=== PATIENT | male | born 1985 | race Hispanic/Latino ===

== ENCOUNTER 2017-04-05 01:11 | Emergency (ER) | payer OTHER ==
[~2017-04-05] VITALS: Ht 170.2 cm; Wt 65.8 kg
[~2017-04-05 01:11] MED LIST: CLINDAMYCIN HY300 MG PO; MOBIC15 MG PO; PERMETHRIN 60 M60 ML TOP; XODOL PO
--- NOTE | 2017-04-05 02:47 | RADIOLOGY REPORT ---
EXAMINATION: WRIST 4 VIEWS, RIGHT CLINICAL INFORMATION: Right wrist pain following injury. COMPARISON: None. TECHNIQUE: AP, lateral, oblique, scaphoid views of the right wrist are provided. FINDINGS: There is a comminuted fracture to the base of the right fifth metacarpal. Alignment is adequate. There is no displacement of the pronator fat pad. The proximal carpal row is intact. IMPRESSION: Fracture to the base of the right fifth metacarpal.
--- NOTE | 2017-04-05 03:02 | ED HAND/WRIST INJURY COMPLAINT ---
History of Present Illness General Chief Complaint: Hand or Wrist Injury Stated Complaint: "?RT WRIST INJURY S/P FALL AT WORK" Source: patient, old records Exam Limitations: no limitations Vital Signs & Intake/Output Vital Signs & Intake/Output Vital Signs Date Time Temp Pulse Resp B/P B/P Pulse O2 O2 Flow FiO2 Mean Ox Delivery Rate 04/05 0136 99.0 90 16 119/77 98 Room Air Room Air Allergies Coded Allergies: MDX - PCN (penicillin) (PCN (PENICILLIN)) (HIVES 09/16/15) Reconcile Medications CLINDAMYCIN HCL (Clindamycin Hydrochloride) 300 MG CAP 1 CAP PO TID INFECTION (Reported) HYDROCODONE/ACETAMINOPHEN (Xodol 5-300 Tablet) 1 TAB TAB 1 TAB PO PRN PAIN ( Reported) Ibuprofen 600 MG TABLET 1 TAB PO Q6PRN PRN pain with food Meloxicam (Mobic) 15 MG TAB 1 TAB PO DAILY PRN PAIN Oxycodone HCl/Acetaminophen (Percocet 5-325 MG Tablet) 5 MG-325 MG TABLET 1 TAB PO Q6P PRN severe pain Triage Note: 32yo MALE TO TRIAGE W/CO R WRIST PAIN SP FALL AT WORK ON SAT. STATES "HE PUT HIS R HAND OUT TO BRACE HIS FALL" CO PAIN W/ANY ROM. Triage Nurses Notes Reviewed? yes Occurred: 2 days Duration: day(s):, constant, continues in ED, getting worse Timing: recent history Injury Environment: work Severity: severe Pain/Injury Location: Right: Hand. Context: fall Method of Injury: direct blow, fall Modifying Factors: Improves With: immobilization. Worsens With: jarring, movement. Associated Symptoms: swelling, GCS 15 since, stiffness HPI: 2 days prior to admission while at work patient jumped over wax floor slipped on a rug and fell onto right hand. He complains of right fifth metacarpal pain swelling limited range of motion radiating to his wrist now severe sharp improved with immobilization and rest. He is right-hand dominant. He denies other injury fever chills nausea vomiting diarrhea abdominal pain chest pain shortness breath headache dysuria rash bleeding change in sensory function. Past History Travel History Traveled to [place] past 21 day No Medical History Any Pertinent Medical History? none Neurological: NONE EENT: NONE Cardiovascular: NONE Respiratory: NONE Gastrointestinal: NONE Hepatic: NONE Renal: NONE Musculoskeletal: NONE Psychiatric: NONE Endocrine: NONE Blood Disorders: NONE Cancer(s): NONE LEAD DESIGNER/Reproductive: NONE Surgical History Surgical History: N Psychosocial History What is your primary language [place] Irish Tobacco Use: Current Daily Use Daily Tobacco Use Amount/Type: => 5 Cigarettes daily Family History Hx Contributory? No Review of Systems Review of Systems Constitutional: Reports: no symptoms. EENTM: Reports: no symptoms. Respiratory: Reports: no symptoms. Cardiovascular: Reports: no symptoms. GI: Reports: no symptoms. Genitourinary: Reports: no symptoms. Musculoskeletal: Reports: see HPI, joint pain, joint swelling. Skin: Reports: no symptoms. Neurological/Psychological: Reports: no symptoms. Hematologic/Endocrine: Reports: no symptoms. Immunologic/Allergic: Reports: no symptoms. All Other Systems: Reviewed and Negative Physical Exam Physical Exam General Appearance: well developed/nourished, alert, awake, anxious, mild distress Head: atraumatic, normal appearance Eyes: Bilateral: PERRL, EOMI. Ears, Nose, Throat: normal pharynx, normal ENT inspection, hearing grossly normal Neck: normal inspection, supple Cardiovascular/Respiratory: normal breath sounds, regular rate/rhythm Back: normal inspection Shoulder Left: normal range of motion, normal inspection Shoulder Right: normal range of motion, normal inspection Elbow Left: normal range of motion, normal inspection Elbow Right: normal range of motion, normal inspection Forearm Left: normal range of motion, normal inspection Forearm Right: normal range of motion, normal inspection Wrist Left: normal range of motion, normal inspection Wrist Right: swelling, tenderness, deformity, evidence of injury, soft tissue tenderness, limited range of motion Hand Left: normal inspection, normal range of motion Hand Right: bone tenderness, limited range of motion, evidence of injury, swelling, tender Reflexes: 2+: bicep (R), bicep (L). Neurologic/Tendon: normal sensation, normal motor functions, normal tendon functions Skin: intact, normal color, warm/dry Lymphatic: no anterior cervical ben Progress Differential Diagnosis: dislocation, fracture, sprain Plan of Care: Orders Procedure Date/time Status Durable Medical Equipment 04/05 302 Active (RUBINA DALLAS MD) Diagnostic Imaging: Viewed by Me: Radiology Read. Discussed w/RAD: Radiology Read. Radiology Impression: fracture (comminuted 5th base) Departure Departure Time of Disposition: 302 Disposition: HOME OR SELF CARE Condition: Stable Clinical Impression Primary Impression: Fracture, metacarpal Qualifiers: Encounter type: initial encounter Metacarpal bone: fifth Fracture type: closed Metacarpal location: base Fracture alignment: nondisplaced Laterality: right Qualified Code: S62.346A - Nondisplaced fracture of base of fifth metacarpal bone, right hand, initial encounter for closed fracture Referrals: MILKA EDMOND (PCP/Family) DANAE DURON,ABRAM Gaspar Call for orthopedic follow up Departure Forms: Customer Survey General Discharge Information RELEASE- WORK Prescriptions: Current Visit Scripts Ibuprofen 1 TAB PO Q6PRN PRN pain #50 TAB with food Oxycodone HCl/Acetaminophen (Percocet 5-325 MG Tablet) 1 TAB PO Q6P PRN severe pain #15 TAB Procedures Splinting Location: right hand and wrist Manual Alignment Performed: No Pre-Made Type: velcro Splint: volar, wrist Splint Applied By: splint applied by other Pre-Proc Neuro Vasc Exam: normal Post-Proc Neuro Vasc Exam: normal
[2017-04-05] MEDS ORDERED: IBUPROFEN600 M1 PO (03:04)
[2017-04-05] MEDS ORDERED: PERCOCET 5-3251 EACH PO (03:04)
[2017-04-05 03:24] VITALS: BP 123/63
== END 2017-04-05 03:26 ==
LOC: ERH 01:11
DX: S62.316A Displaced fracture of base of fifth metacarpal bone, right hand, initial encounter for closed fracture (principal); W01.0XXA Fall on same level from slipping, tripping and stumbling without subsequent striking against object, initial encounter; Y93.89 Activity, other specified; Y92.9 Unspecified place or not applicable
CPT/HCPCS: 73110-RT